=== PATIENT | female | born 2000 | race Two or more races ===

== ENCOUNTER 2021-03-17 03:45 | Emergency (ER) | payer SELFPAY ==
[~2021-03-17] VITALS: Ht 160 cm; Wt 61.4 kg
[2021-03-17 04:50] VITALS: BP 139/50
--- NOTE | 2021-03-17 05:07 | PHYS DOC ---
General Adult EDM: Chief Complaint: PELVIC PAIN HPI: HPI: "..I am starting my period...and having really bad pelvic cramps... I ve had this before...but not this bad.. 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 Patient does have a history of dysmenorrhea which also runs in her family. Patient states it is time for her normal menses patient denies any trauma. Patient denies any vaginal discharge. Patient recently graduated from [employer]. Patient denies any sexual trauma or other trauma. No history of STDs. No history of pregnancies. Has had only 3 lifetime sex partners.. Has had recent travel to [place] with her boyfriend. Patient has no primary care. Patient has not taken any Tylenol or ibuprofen for her symptoms. Patient has never had a medical pelvic exam. Review of Systems: Review of Systems: Constitutional: Denies fever or chills Eyes: Denies change in visual acuity HENT: Denies nasal congestion or sore throat Respiratory: Denies cough or shortness of breath Cardiovascular: Denies chest pain or edema GI: Complains of cramping abdominal pain and start of her menses, nausea, vomiting, bloody stools or diarrhea : Denies dysuria Musculoskeletal: Denies back pain or joint pain Integument: Denies rash Neurologic: Denies headache, focal weakness or sensory changes Endocrine: Denies polyuria or polydipsia Lymphatic: Denies swollen glands Psychiatric: Denies depression or anxiety Family History: Family History: Family history of dysmenorrhea. Mother had an [place] at age 47 Current Medications: Current Meds: See nursing for home meds Allergies: Allergies: No known drug allergies Physical Exam: PE: Constitutional: Well developed, well nourished, moderate acute distress, non- toxic appearance. [] HENT: Normocephalic, atraumatic, bilateral external ears normal, oropharynx moist, no oral exudates, nose normal. [] Eyes: PERRLA, EOMI, conjunctiva normal, no discharge. [] Neck: Normal range of motion, no tenderness, supple, no stridor. [] Cardiovascular:Heart rate regular rhythm, no murmur [] Lungs & Thorax: Bilateral breath sounds clear to auscultation [] Abdomen: Bowel sounds normal, soft, lower pelvic tenderness, no masses, no pulsatile masses. No rebound pain . Skin: Warm, dry, no erythema, no rash. [] Back: No tenderness, no CVA tenderness. [] Extremities: No tenderness, no cyanosis, no clubbing, ROM intact, no edema. No psoas sign. No cording. Neurologic: Alert and oriented X 3, normal motor function, normal sensory function, no focal deficits noted. [] Psychologic: Affect very anxious, judgement normal, mood normal. [] EKG: EKG: [] Radiology/Procedures: Radiology/Procedures: [] Heart Score: C/O Chest Pain: N/A Risk Factors: Risk Factors: DM, Current or recent (<one month) smoker, HTN, HLP, family history of CAD, obesity. Risk Scores: Score 0 - 3: 2.5% MACE over next 6 weeks - Discharge Home Score 4 - 6: 20.3% MACE over next 6 weeks - Admit for Clinical Observation Score 7 - 10: 72.7% MACE over next 6 weeks - Early Invasive Strategies Course & Med Decision Making: Course & Med Decision Making Pertinent Labs and Imaging studies reviewed. (See chart for details) Patient had a negative test. Patient declines pelvic exam at this time. Encourage patient keep follow-up with her primary care and possibly [facility] for course of control to help control her dysmenorrhea. Recommend patient have a pelvic exam but not on her menses. Take Tylenol and ibuprofen for pain. Return if any concerns. Impression: 1. Dysmenorrhea [] Dragon Disclaimer: Dragon Disclaimer: This electronic medical record was generated, in whole or in part, using a voice recognition dictation system. Departure Departure: Referrals: PCP,NO (PCP) [place] Disclaimer This chart was dictated in whole or in part using Voice Recognition software in a busy, high-work load, and often noisy Emergency Department environment. It may contain unintended and wholly unrecognized errors or omissions. VICKY JIMENEZ MD Mar 17, 2021 05:07
[2021-03-17] MEDS ORDERED: ONDANSETRON PF 4 MG/2 ML VIAL. IVP ONE (05:15)
[2021-03-17] MEDS ORDERED: FAMOTIDINE 20 MG/2 ML VIAL IVP ONE (05:15)
[2021-03-17] MEDS ORDERED: IV RINGERS SOLUTION,LACTATED 1,000 ML IV SCH (05:15)
[2021-03-17] MEDS ORDERED: KETOROLAC 60 MG/2 ML VIAL. IM ONE (05:30)
[2021-03-17 05:51] LABS: BACTERIA,URINE 0 /HPF (0-FEW); BILIRUBIN,URINE NEG (NEG); CLARITY,URINE CLEAR; COLOR,URINE YELLOW; GLUCOSE,URINE NEG (NEG); NITRITE,URINE NEG (NEG); RBC,URINE OCC /HPF (0-2); SQUAMOUS EPITHELIAL CELL,UR OCC /LPF; UROBILINOGEN,URINE 0.2 mg/dL (0.2 mg/dL); WBC,URINE OCC /HPF (0-4)
[2021-03-17 05:52] LABS: AMPHETAMINE/METHAMPHETAMINE NEG (NEG); BARBITURATES NEG (NEG); BENZODIAZEPINES NEG (NEG); CANNABINOIDS NEG (NEG); COCAINE NEG (NEG); METHADONE NEG (NEG); OPIATES NEG (NEG); PHENCYCLIDINE NEG (NEG)
== END 2021-03-17 05:48 | disposition home or self-care (01) ==
LOC: ER 03:45
DX: N94.6 Dysmenorrhea, unspecified (principal)
CPT/HCPCS: 36415; 80307; 81001; 81025; 96372; 99283; J1885